=== PATIENT | male | born 1965 | race African-American/Black ===

== ENCOUNTER 2021-05-26 12:58 | Inpatient (IN) | payer OTHER ==
[2021-05-26 14:51] VITALS: BMI 27.6
[2021-05-26] MEDS ORDERED: ACETAMINOPHEN 325 MG TABLET (FP) PO PRN ×2 (15:20)
[2021-05-26] MEDS ORDERED: METHOCARBAMOL 500 MG TABLET PO PRN (15:20)
[2021-05-26] MEDS ORDERED: NICOTINE 10 MG CARTRIDGE (INHALER) IH PRN (15:20)
[2021-05-26] MEDS ORDERED: MAGNESIUM HYDROX 2400MG/30ML ORAL SUSPENSION 30 ML CUP PO PRN (15:20)
[2021-05-26] MEDS ORDERED: MENTHOL/PHENOL 1 EACH UD MM PRN (15:20)
[2021-05-26] MEDS ORDERED: ONDANSETRON *ODT* 4 MG TABLET SL PRN (15:20)
[2021-05-26] MEDS ORDERED: MAGNESIUM CITRATE 300 ML BOTTLE PO PRN (15:20)
[2021-05-26] MEDS ORDERED: MAG HYDROX/AL HYDROX/SIMETH 30 ML UNIT-DOSE CUP PO PRN (15:20)
[2021-05-26] MEDS ORDERED: BISMUTH SUBSALICYLATE 524 MG/30 ML PO PRN (15:20)
[2021-05-26] MEDS ORDERED: IBUPROFEN 400 MG TABLET (FP) PO PRN (15:20)
[2021-05-26] MEDS ORDERED: ALBUTEROL SO4 HFA INHALER IH PRN (15:23)
[2021-05-26] MEDS: NICOTINE 14 MG/24 HOURS TOPICAL PATCH TD SCH (18:26)
[2021-05-26] MEDS: hydrOXYzine PAMOATE 25 MG CAPSULE (FP) PO SCH ×2 (18:26→22:41)
[2021-05-26] MEDS ORDERED: MELATONIN 5 MG TABLETS PO SCH (22:00)
[2021-05-26] MEDS ORDERED: THIAMINE HCL 100 MG TABLET (FP) PO SCH (22:00)
[2021-05-27] MEDS: hydrOXYzine PAMOATE 25 MG CAPSULE (FP) PO SCH ×2 (06:17→10:52)
[2021-05-27 09:31] VITALS: BP 136/80; PULSE 63; TEMP 97.3
[2021-05-27 10:29] LABS: BLOOD UREA NITROGEN 7.8 mg/dL (7-18); CALCIUM 8.5 mg/dL (8.5-10.1)
[2021-05-27 10:30] LABS: HEMATOCRIT 39.8 % (35.4-49); HEMOGLOBIN 13.5 GM/dL (11.7-16.9); MCH 30.7 pg (25.7-33.7); MCHC 33.9 g/dl (32.0-35.9); MEAN CELL VOLUME 90.7 fl (80-96); MEAN PLT VOLUME 7.6 fl (7.5-11.1); PLATELET COUNT 284 10^3/uL (134-434); RBC 4.39 M/mm3 (4.00-5.60); RDW 15.2 % (11.9-15.9); WHITE BLOOD COUNT 4.2 K/mm3 (4.0-10.0)
[2021-05-27 10:33] LABS: CREATININE 0.9 mg/dL (0.55-1.3)
[2021-05-27 10:34] LABS: BILIRUBIN,TOTAL 0.3 mg/dL (0.2-1); TOT PROT 7.2 g/dl (6.4-8.2)
[2021-05-27] MEDS: NICOTINE 14 MG/24 HOURS TOPICAL PATCH TD SCH (10:52)
== END 2021-05-27 12:12 | disposition other institution (70) | DRG 775 ==
LOC: YASAS 12:58 → Y3N 16:44
PROVIDERS: ADMIT Allergy & Immunology; ATTEND Allergy & Immunology
PROC: HZ2ZZZZ Detoxification Services for Substance Abuse Treatment (ICD-10-PCS; principal; 2021-05-26)
DX: F10.230 Alcohol dependence with withdrawal, uncomplicated (principal); F12.20 Cannabis dependence, uncomplicated; F17.210 Nicotine dependence, cigarettes, uncomplicated; F31.9 Bipolar disorder, unspecified; Z96.642 Presence of left artificial hip joint; Z91.018 Allergy to other foods
CPT/HCPCS: 36415; 80053; 85027; 86780; C9803; U0003; U0005

== ENCOUNTER 2021-05-27 12:19 | Inpatient (IN) | payer OTHER ==
[2021-05-27] MEDS ORDERED: P-EPHED 60MG/TRIPROLIDI 2.5MG TABLET PO PRN (13:32)
[2021-05-27] MEDS ORDERED: MAG HYDROX/AL HYDROX/SIMETH 30 ML UNIT-DOSE CUP PO PRN (13:32)
[2021-05-27] MEDS ORDERED: LOPERAMIDE HCL 2 MG CAPSULE PO PRN (13:32)
[2021-05-27] MEDS ORDERED: ACETAMINOPHEN 325 MG TABLET (FP) PO PRN (13:32)
[2021-05-27] MEDS ORDERED: MAGNESIUM HYDROX 2400MG/30ML ORAL SUSPENSION 30 ML CUP PO PRN (13:32)
[2021-05-27] MEDS ORDERED: MENTHOL/PHENOL 1 EACH UD MM PRN (13:32)
[2021-05-27] MEDS ORDERED: IBUPROFEN 400 MG TABLET (FP) PO PRN (13:32)
[2021-05-27] MEDS ORDERED: guaiFENesin 200 MG/10 ML 10 ML UNIT-DOSE CUPS PO PRN (13:32)
[2021-05-27] MEDS ORDERED: MAGNESIUM CITRATE 300 ML BOTTLE PO PRN (13:32)
[2021-05-27] MEDS: METHOCARBAMOL 500 MG TABLET PO SCH ×3 (15:28→21:10)
[2021-05-27] MEDS ORDERED: PT OWN MED DRAWER 7, Y5N ONE (17:11)
[2021-05-27] MEDS ORDERED: diphenhydrAMINE HCL 25 MG CAPSULE (FP) PO ONE (21:08)
[2021-05-27] MEDS: diphenhydrAMINE HCL 50 MG CAPSULE PO SCH (21:10)
[2021-05-27] MEDS: THIAMINE HCL 100 MG TABLET (FP) PO SCH (21:10)
[2021-05-27] MEDS: MELATONIN 5 MG TABLETS PO SCH (21:10)
[2021-05-27] MEDS: MIRTAZAPINE 15 MG TABLET (FP) PO SCH (21:10)
[2021-05-28] MEDS: NICOTINE 7 MG/24 HOURS TOPICAL PATCH TD SCH (11:28)
[2021-05-28] MEDS: PRENATAL VITAMINS W/ FOLIC ACID TABLET (FP) PO SCH (11:28)
[2021-05-28] MEDS: METHOCARBAMOL 500 MG TABLET PO SCH ×4 (11:28→21:39)
[2021-05-28] MEDS: NICOTINE 10 MG CARTRIDGE (INHALER) IH PRN ×2 (12:19→18:20)
[2021-05-28] MEDS: hydrOXYzine PAMOATE 25 MG CAPSULE (FP) PO PRN (13:03)
[2021-05-28] MEDS ORDERED: diphenhydrAMINE HCL 25 MG CAPSULE (FP) PO ONE (18:48)
[2021-05-28] MEDS: THIAMINE HCL 100 MG TABLET (FP) PO SCH (21:40)
[2021-05-28] MEDS: MELATONIN 5 MG TABLETS PO SCH (21:40)
[2021-05-28] MEDS: diphenhydrAMINE HCL 50 MG CAPSULE PO SCH (21:40)
[2021-05-28] MEDS: MIRTAZAPINE 15 MG TABLET (FP) PO SCH (21:40)
[2021-05-29] MEDS: PRENATAL VITAMINS W/ FOLIC ACID TABLET (FP) PO SCH (10:20)
[2021-05-29] MEDS: METHOCARBAMOL 500 MG TABLET PO SCH ×4 (10:21→21:13)
[2021-05-29] MEDS: NICOTINE 10 MG CARTRIDGE (INHALER) IH PRN ×3 (10:21→22:15)
[2021-05-29] MEDS: NICOTINE 7 MG/24 HOURS TOPICAL PATCH TD SCH (10:29)
[2021-05-29] MEDS ORDERED: risperiDONE MICROSPHERES 37.5 MG/2 ML ML IM ONE (12:00)
[2021-05-29] MEDS ORDERED: diphenhydrAMINE HCL 25 MG CAPSULE (FP) PO ONE (21:07)
[2021-05-29] MEDS: diphenhydrAMINE HCL 50 MG CAPSULE PO SCH (21:12)
[2021-05-29] MEDS: MIRTAZAPINE 15 MG TABLET (FP) PO SCH (21:12)
[2021-05-29] MEDS: THIAMINE HCL 100 MG TABLET (FP) PO SCH (21:13)
[2021-05-29] MEDS: MELATONIN 5 MG TABLETS PO SCH (22:42)
[2021-05-30] MEDS: NICOTINE 10 MG CARTRIDGE (INHALER) IH PRN ×4 (10:19→22:28)
[2021-05-30] MEDS: PRENATAL VITAMINS W/ FOLIC ACID TABLET (FP) PO SCH (10:19)
[2021-05-30] MEDS: hydrOXYzine PAMOATE 25 MG CAPSULE (FP) PO PRN ×2 (10:19→14:24)
[2021-05-30] MEDS: METHOCARBAMOL 500 MG TABLET PO SCH ×4 (10:19→21:34)
[2021-05-30] MEDS: NICOTINE 7 MG/24 HOURS TOPICAL PATCH TD SCH (10:33)
[2021-05-30] MEDS ORDERED: diphenhydrAMINE HCL 25 MG CAPSULE (FP) PO ONE (19:53)
[2021-05-30] MEDS: MELATONIN 5 MG TABLETS PO SCH (21:35)
[2021-05-30] MEDS: diphenhydrAMINE HCL 50 MG CAPSULE PO SCH (21:35)
[2021-05-30] MEDS: MIRTAZAPINE 15 MG TABLET (FP) PO SCH (21:35)
[2021-05-30] MEDS: THIAMINE HCL 100 MG TABLET (FP) PO SCH (21:35)
[2021-05-31] MEDS: METHOCARBAMOL 500 MG TABLET PO SCH ×4 (09:35→21:03)
[2021-05-31] MEDS: NICOTINE 10 MG CARTRIDGE (INHALER) IH PRN ×3 (09:35→19:26)
[2021-05-31] MEDS: hydrOXYzine PAMOATE 25 MG CAPSULE (FP) PO PRN ×2 (09:35→14:10)
[2021-05-31] MEDS: PRENATAL VITAMINS W/ FOLIC ACID TABLET (FP) PO SCH (09:35)
[2021-05-31] MEDS: NICOTINE 7 MG/24 HOURS TOPICAL PATCH TD SCH (09:35)
[2021-05-31] MEDS ORDERED: diphenhydrAMINE HCL 25 MG CAPSULE (FP) PO ONE (18:38)
[2021-05-31] MEDS: MIRTAZAPINE 15 MG TABLET (FP) PO SCH (21:02)
[2021-05-31] MEDS: MELATONIN 5 MG TABLETS PO SCH (21:03)
[2021-05-31] MEDS: diphenhydrAMINE HCL 50 MG CAPSULE PO SCH (21:03)
[2021-05-31] MEDS: THIAMINE HCL 100 MG TABLET (FP) PO SCH (21:03)
[2021-06-01] MEDS: hydrOXYzine PAMOATE 25 MG CAPSULE (FP) PO PRN ×2 (10:44→14:01)
[2021-06-01] MEDS: NICOTINE 7 MG/24 HOURS TOPICAL PATCH TD SCH (10:44)
[2021-06-01] MEDS: PRENATAL VITAMINS W/ FOLIC ACID TABLET (FP) PO SCH (10:44)
[2021-06-01] MEDS: METHOCARBAMOL 500 MG TABLET PO SCH ×4 (10:44→21:29)
[2021-06-01] MEDS: NICOTINE 10 MG CARTRIDGE (INHALER) IH PRN ×2 (10:45→21:30)
[2021-06-01] MEDS ORDERED: diphenhydrAMINE HCL 25 MG CAPSULE (FP) PO ONE (19:04)
[2021-06-01] MEDS: diphenhydrAMINE HCL 50 MG CAPSULE PO SCH (21:29)
[2021-06-01] MEDS: MELATONIN 5 MG TABLETS PO SCH (21:29)
[2021-06-01] MEDS: THIAMINE HCL 100 MG TABLET (FP) PO SCH (21:29)
[2021-06-01] MEDS: MIRTAZAPINE 15 MG TABLET (FP) PO SCH (21:29)
[2021-06-02] MEDS: PRENATAL VITAMINS W/ FOLIC ACID TABLET (FP) PO SCH (09:47)
[2021-06-02] MEDS: hydrOXYzine PAMOATE 25 MG CAPSULE (FP) PO PRN ×2 (09:48→14:46)
[2021-06-02] MEDS: METHOCARBAMOL 500 MG TABLET PO SCH ×4 (09:48→21:03)
[2021-06-02] MEDS: NICOTINE 10 MG CARTRIDGE (INHALER) IH PRN ×3 (09:48→21:04)
[2021-06-02] MEDS: NICOTINE 7 MG/24 HOURS TOPICAL PATCH TD SCH (09:48)
[2021-06-02] MEDS ORDERED: diphenhydrAMINE HCL 25 MG CAPSULE (FP) PO ONE (19:46)
[2021-06-02] MEDS: diphenhydrAMINE HCL 50 MG CAPSULE PO SCH (21:03)
[2021-06-02] MEDS: MIRTAZAPINE 15 MG TABLET (FP) PO SCH (21:03)
[2021-06-02] MEDS: THIAMINE HCL 100 MG TABLET (FP) PO SCH (21:03)
[2021-06-02] MEDS: MELATONIN 5 MG TABLETS PO SCH (21:03)
[2021-06-03] MEDS: PRENATAL VITAMINS W/ FOLIC ACID TABLET (FP) PO SCH (10:23)
[2021-06-03] MEDS: NICOTINE 10 MG CARTRIDGE (INHALER) IH PRN ×2 (10:23→21:29)
[2021-06-03] MEDS: NICOTINE 7 MG/24 HOURS TOPICAL PATCH TD SCH (10:23)
[2021-06-03] MEDS: METHOCARBAMOL 500 MG TABLET PO SCH ×4 (10:23→21:28)
[2021-06-03] MEDS ORDERED: diphenhydrAMINE HCL 25 MG CAPSULE (FP) PO ONE (19:19)
[2021-06-03] MEDS: diphenhydrAMINE HCL 50 MG CAPSULE PO SCH (21:28)
[2021-06-03] MEDS: MIRTAZAPINE 15 MG TABLET (FP) PO SCH (21:28)
[2021-06-03] MEDS: MELATONIN 5 MG TABLETS PO SCH (21:28)
[2021-06-03] MEDS: THIAMINE HCL 100 MG TABLET (FP) PO SCH (21:28)
[2021-06-04] MEDS: PRENATAL VITAMINS W/ FOLIC ACID TABLET (FP) PO SCH (10:11)
[2021-06-04] MEDS: METHOCARBAMOL 500 MG TABLET PO SCH ×4 (10:12→21:02)
[2021-06-04] MEDS: NICOTINE 10 MG CARTRIDGE (INHALER) IH PRN ×2 (10:13→17:46)
[2021-06-04] MEDS ORDERED: COLLOIDAL OATMEAL 1 BAR EACH TP PRN (10:51)
[2021-06-04] MEDS: NICOTINE 7 MG/24 HOURS TOPICAL PATCH TD SCH (10:55)
[2021-06-04] MEDS: hydrOXYzine PAMOATE 25 MG CAPSULE (FP) PO PRN (14:30)
[2021-06-04] MEDS ORDERED: diphenhydrAMINE HCL 25 MG CAPSULE (FP) PO ONE (20:06)
[2021-06-04] MEDS: THIAMINE HCL 100 MG TABLET (FP) PO SCH (21:02)
[2021-06-04] MEDS: MELATONIN 5 MG TABLETS PO SCH (21:02)
[2021-06-04] MEDS: diphenhydrAMINE HCL 50 MG CAPSULE PO SCH (21:02)
[2021-06-04] MEDS: MIRTAZAPINE 15 MG TABLET (FP) PO SCH (21:02)
[2021-06-05] MEDS: METHOCARBAMOL 500 MG TABLET PO SCH ×4 (10:19→21:50)
[2021-06-05] MEDS: NICOTINE 7 MG/24 HOURS TOPICAL PATCH TD SCH (10:19)
[2021-06-05] MEDS: hydrOXYzine PAMOATE 25 MG CAPSULE (FP) PO PRN (10:19)
[2021-06-05] MEDS: PRENATAL VITAMINS W/ FOLIC ACID TABLET (FP) PO SCH (10:19)
[2021-06-05] MEDS: NICOTINE 10 MG CARTRIDGE (INHALER) IH PRN ×2 (10:20→21:51)
[2021-06-05] MEDS ORDERED: diphenhydrAMINE HCL 25 MG CAPSULE (FP) PO ONE (19:24)
[2021-06-05] MEDS: MIRTAZAPINE 15 MG TABLET (FP) PO SCH (21:50)
[2021-06-05] MEDS: diphenhydrAMINE HCL 50 MG CAPSULE PO SCH (21:50)
[2021-06-05] MEDS: THIAMINE HCL 100 MG TABLET (FP) PO SCH (21:51)
[2021-06-05] MEDS: MELATONIN 5 MG TABLETS PO SCH (21:51)
[2021-06-06] MEDS: PRENATAL VITAMINS W/ FOLIC ACID TABLET (FP) PO SCH (09:51)
[2021-06-06] MEDS: METHOCARBAMOL 500 MG TABLET PO SCH ×4 (09:51→21:08)
[2021-06-06] MEDS: NICOTINE 7 MG/24 HOURS TOPICAL PATCH TD SCH (09:51)
[2021-06-06] MEDS: NICOTINE 10 MG CARTRIDGE (INHALER) IH PRN ×2 (09:51→21:09)
[2021-06-06] MEDS ORDERED: diphenhydrAMINE HCL 25 MG CAPSULE (FP) PO ONE (19:03)
[2021-06-06] MEDS: THIAMINE HCL 100 MG TABLET (FP) PO SCH (21:07)
[2021-06-06] MEDS: diphenhydrAMINE HCL 50 MG CAPSULE PO SCH (21:08)
[2021-06-06] MEDS: MELATONIN 5 MG TABLETS PO SCH (21:08)
[2021-06-06] MEDS: MIRTAZAPINE 15 MG TABLET (FP) PO SCH (21:08)
[2021-06-07] MEDS: NICOTINE 10 MG CARTRIDGE (INHALER) IH PRN ×2 (10:07→21:32)
[2021-06-07] MEDS: PRENATAL VITAMINS W/ FOLIC ACID TABLET (FP) PO SCH (10:07)
[2021-06-07] MEDS: METHOCARBAMOL 500 MG TABLET PO SCH ×4 (10:07→21:31)
[2021-06-07] MEDS: NICOTINE 7 MG/24 HOURS TOPICAL PATCH TD SCH (10:39)
[2021-06-07] MEDS ORDERED: diphenhydrAMINE HCL 25 MG CAPSULE (FP) PO ONE (19:07)
[2021-06-07] MEDS: MELATONIN 5 MG TABLETS PO SCH (21:31)
[2021-06-07] MEDS: THIAMINE HCL 100 MG TABLET (FP) PO SCH (21:31)
[2021-06-07] MEDS: MIRTAZAPINE 15 MG TABLET (FP) PO SCH (21:32)
[2021-06-07] MEDS: diphenhydrAMINE HCL 50 MG CAPSULE PO SCH (21:32)
[2021-06-08] MEDS: METHOCARBAMOL 500 MG TABLET PO SCH ×4 (09:36→21:02)
[2021-06-08] MEDS: PRENATAL VITAMINS W/ FOLIC ACID TABLET (FP) PO SCH (09:36)
[2021-06-08] MEDS: NICOTINE 7 MG/24 HOURS TOPICAL PATCH TD SCH (09:36)
[2021-06-08] MEDS: NICOTINE 10 MG CARTRIDGE (INHALER) IH PRN ×2 (09:36→21:03)
[2021-06-08] MEDS ORDERED: diphenhydrAMINE HCL 25 MG CAPSULE (FP) PO ONE (20:13)
[2021-06-08] MEDS: diphenhydrAMINE HCL 50 MG CAPSULE PO SCH (21:02)
[2021-06-08] MEDS: MELATONIN 5 MG TABLETS PO SCH (21:02)
[2021-06-08] MEDS: THIAMINE HCL 100 MG TABLET (FP) PO SCH (21:02)
[2021-06-08] MEDS: MIRTAZAPINE 15 MG TABLET (FP) PO SCH (21:02)
[2021-06-09 07:39] VITALS: BP 130/81
[2021-06-09] MEDS: METHOCARBAMOL 500 MG TABLET PO SCH ×4 (10:16→22:04)
[2021-06-09] MEDS: NICOTINE 10 MG CARTRIDGE (INHALER) IH PRN ×2 (10:16→22:04)
[2021-06-09] MEDS: PRENATAL VITAMINS W/ FOLIC ACID TABLET (FP) PO SCH (10:16)
[2021-06-09] MEDS: NICOTINE 7 MG/24 HOURS TOPICAL PATCH TD SCH (10:31)
[2021-06-09] MEDS ORDERED: diphenhydrAMINE HCL 25 MG CAPSULE (FP) PO ONE (19:33)
[2021-06-09] MEDS: THIAMINE HCL 100 MG TABLET (FP) PO SCH (22:04)
[2021-06-09] MEDS: MELATONIN 5 MG TABLETS PO SCH (22:04)
[2021-06-09] MEDS: diphenhydrAMINE HCL 50 MG CAPSULE PO SCH (22:04)
[2021-06-09] MEDS: MIRTAZAPINE 15 MG TABLET (FP) PO SCH (22:04)
[2021-06-10 08:57] VITALS: PULSE 63; TEMP 96
[2021-06-10] MEDS ORDERED: PT OWN MED DRAWER 7, Y5N ONE (09:12)
[2021-06-10] MEDS: METHOCARBAMOL 500 MG TABLET PO SCH (09:14)
[2021-06-10] MEDS: PRENATAL VITAMINS W/ FOLIC ACID TABLET (FP) PO SCH (09:14)
[2021-06-10] MEDS: hydrOXYzine PAMOATE 25 MG CAPSULE (FP) PO PRN (09:14)
== END 2021-06-10 09:32 | disposition home or self-care (01) | DRG 772 ==
LOC: YASAS 12:19 → Y3W 12:20
PROVIDERS: ADMIT Allergy & Immunology; ATTEND Allergy & Immunology
PROC: HZ42ZZZ Group Counseling for Substance Abuse Treatment, Cognitive-Behavioral (ICD-10-PCS; principal; 2021-05-27)
DX: F10.20 Alcohol dependence, uncomplicated (principal); F12.20 Cannabis dependence, uncomplicated; F17.210 Nicotine dependence, cigarettes, uncomplicated; F31.9 Bipolar disorder, unspecified; G47.00 Insomnia, unspecified; Z96.649 Presence of unspecified artificial hip joint; Z56.0 Unemployment, unspecified; Z91.018 Allergy to other foods